=== PATIENT | male | born 1965 | race Two or more races ===

== ENCOUNTER 2024-05-04 06:07 | Observation (INO) | payer OTHER ==
[2024-05-04] VITALS (7 sets, daily range): BP systolic 129–152; BP diastolic 81–91; PULSE 60–80; RESP 13–18; TEMP 97.5–98.3; O2SAT 92–98
[~2024-05-04] VITALS: Ht 165.1 cm; Wt 85.3 kg
[~2024-05-04 06:07] MED LIST: FINA5TAB4 PO; OXYB5TAB14 PO
[2024-05-04] MEDS: CIPROFLOXACIN 400MG/200ML 200 ML IV ONE (07:15)
[2024-05-04] MEDS ORDERED: HYDROmorphone HCL 2 MG/ML VL/or syr IV PRN (07:30)
[2024-05-04] MEDS: ONDANSETRON HCL 4 MG/2 ML VIAL IV ONE (07:30)
[2024-05-04] MEDS ORDERED: MIDAZOLAM HCL 2MG/2ML 2ml VIAL (1mg/ml) ONE (07:36)
[2024-05-04] MEDS ORDERED: fentaNYL CITRATE 100 MCG/2 ML VL ONE (07:36)
[2024-05-04] MEDS ORDERED: PROPOFOL 10 MG/ML 20 ML IV ONE (07:36)
[2024-05-04] MEDS ORDERED: LIDOCAINE 2% (LOCAL ANESTH.) PF 5ml SDV ONE (07:37)
[2024-05-04] MEDS ORDERED: DexAMETHasone SOD PHOS 10MG/1ML VIAL INJ ONE (07:37)
[2024-05-04] MEDS ORDERED: ONDANSETRON HCL 4 MG/2 ML VIAL ONE (07:37)
[2024-05-04] MEDS: GENTAMICIN SULFATE 2 ML ONE (07:44)
--- NOTE | 2024-05-04 07:52 | POSTOP ---
Post-Operative Note Post-Operative Note Preop Diagnosis Urinary retention UTI BPH Postop Diagnosis: TURP Operation performed TURP Specimen Prostate tissue Anesthesia: General Anesthesiologist: Daniel Surgeon Brenda Abarca Complications & Mgmt Given UTI, patient will be admitted for obervation and antibiotic therapy and CT Scan evaluation. Date 05/04/24 Time 07:50 BRENDA ABARCA MD May 04, 2024 07:52
[2024-05-04] MEDS ORDERED: NITROGLYCERIN 0.4 MG SL TAB SL PRN (08:00)
[2024-05-04] MEDS ORDERED: MORPHINE SULFATE INJ 2 MG/ml SYRG IV PRN (08:00)
[2024-05-04] MEDS ORDERED: ROCURONIUM 10MG/ML 10ML VIAL IV ONE (08:16)
[2024-05-04] MEDS ORDERED: GENTAMICIN PER PHARMACY 0 ML IV SCH (09:45)
[2024-05-04] MEDS: D5W 5% IV ONE (10:00)
[2024-05-04] MEDS: GENTAMICIN SULFATE IV ONE (10:00)
--- NOTE | 2024-05-04 17:23 | DVH ---
Exam: CT CT AB PEL WO CON-NO ORAL OR IV History: Klebsiella UTI Comparison Study: None Technique: Multidetector spiral CT of the abdomen and pelvis was performed from lung bases to pubic symphysis. Imaging was performed without IV contrast. Axial, coronal and sagittal multiplanar reform ats were obtained from the axial data set by the technologist. Radiation dose : Abdomen/Pelvis: CTDIvol 8 mGy, DLP 420 mGy*cm. Findings: Evaluation of solid organs is limited due to lack of intravenous contrast use. Lung Bases: Atelectasis and scarring in the lung bases. Liver: The liver is normal in size. No focal lesions. Gallbladder and biliary Tree: Unremarkable Spleen: Unremarkable Pancreas: The pancreas is grossly normal in appearance. Adrenal Glands: Unremarkable Kidneys: Kidneys are grossly normal without calculi or hydronephrosis. Bladder: Bladder is decompressed with a Moreira catheter and cannot be adequately assessed. Bowel: The stomach is grossly normal in appearance. Small bowel and colon are normal in caliber and d istribution. Normal appendix is visualized in the right lower quadrant without findings of appendici tis. Ascites: Absent Lymphadenopathy: No mesenteric, retroperitoneal or periportal lymphadenopathy. Abdominal wall and Mesentery: Unremarkable. Vasculature: The visualized abdominal aorta is normal in size and caliber. Evaluation of abdominal a nd pelvic vessels is limited due to lack of intravenous contrast. Pelvic Organs: Prostate is enlarged. Musculoskeletal: No aggressive focal bony lesions, acute fractures or dislocation. IMPRESSION: 1. No acute abdominal or pelvic findings. Atelectasis and scarring in the lung bases. Prostatomegaly. No hydronephrosis or nephrolithiasis. Can not evaluate for pyelonephritis without intravenous contra st. Clinical correlation and continued follow-up is recommended. Radiation optimization: All CT scans at this facility use at least one of these dose optimization kerry hniques: Automated exposure control mA and/or kV adjustment per patient size (includes targeted exams where dose is matched to clinical indication) or iterative reconstruction. HS:Y
[2024-05-05 01:00] VITALS: BP 118/73; PULSE 77; RESP 18; TEMP 97.9; O2SAT 90
[2024-05-05 05:00] VITALS: BP 120/81; PULSE 76; RESP 18; TEMP 98.1; O2SAT 93
[2024-05-05 08:00] VITALS: RESP 18
--- NOTE | 2024-05-05 08:37 | DVHHP2 ---
History of Present Illness History of Present Illness A 59-year-old male obese patient; with past medical history of BPH; who was admitted after TURP to treat UTI. Smoke: No ALCOHOL: none Drugs: None Lives: with Family Review of Systems Genitourinary: Other (Weak urine stream; hesitation) Allergies: Coded Allergies: NO KNOWN ALLERGIES (Unverified , 04/27/24) Medications Current Medications Medications Dose Ordered Sig/Anuj Route Start Time Stop Time Status Last Admin Dose Admin Nitroglycerin 0.4 mg Q5MINP PRN SL 05/04/24 08:00 Morphine Sulfate 2 mg Q30M PRN IV 05/04/24 08:00 Gentamicin Sulfate 0 ml @ 0 mls/hr PER PHARMACY IV 05/04/24 09:45 05/14/24 09:44 UNV Exam Vital Signs Vital Signs Date Time Temp Pulse Resp B/P (MAP) Pulse Ox O2 Delivery O2 Flow Rate FiO2 05/05/24 05:00 98.1 76 18 120/81 (94) 93 98.1 05/04/24 20:00 Room Air* 0 21 General Appearance: Alert, Oriented X3, Cooperative, No acute distress HEENT: Atraumatic Respiratory: Clear to auscultation, Normal air movement Cardiovascular: Regular rate, Normal S1, Normal S2 Abdominal: Normal bowel sounds, Soft, No tenderness, Other (Moreira's catheter in place with clear urine) Extremities: No edema Skin: No rashes Neuro: Normal speech, Cranial nerves 3-12 NL Psych/Mental Status: Mental status NL, Mood NL Labs/Xrays Ordered blood work Assessment/Plan Assessment/Plan A 59-year-old male obese patient; with past medical history of BPH; who was admitted after TURP to treat UTI. #BPH status post TURP on May 04, 2023; now with a clear urine; Moreira's catheter was discontinued; patient passed urine with no complaints; clear urine passed; cleared by Urology for discharge #UTI; patient was discharged home on Augmentin as per Urology #Obesity; counseled the patient is on the importance of adopting healthy lifestyle with diet and exercise in order to lose weight The patient will follow up with discharge clinic next Wednesday and will follow up with Urology in two weeks. Goals of care discussed with the patient for 20 minutes; full code. Late Entry. This medical document was created using an electronic medical record system with computerized dictation system. Although this document has been carefully reviewed, there might still be some phonetic and typographical errors. These areas are purely typographical due to imperfections of the software programs, and do not reflect any compromise in the patient's medical care. Plan discussed with: Patient, Other (Nurse) Date of Service: May 05, 2024 Billing Provider: AYUSH HIGGINS MD Common Visit Codes: 90147-ZHSFRIL INP/OBS CARE (MOD) Secondary Visit Codes: 89550-[id number] CARE PLAN 30 MINUTES (20 minutes) AYUSH HIGGINS MD May 05, 2024 08:37
[2024-05-05 09:00] VITALS: BP 121/78; PULSE 72; RESP 16; TEMP 98.8; O2SAT 92
[2024-05-05 10:18] LABS: Alanine Aminotransferase 37 U/L (7-40); Albumin 4.1 g/dL (3.2-4.8); Anion Gap 8 (5-15); Aspartate Aminotransferase 20 U/L (13-40); BUN/Creatinine Ratio 19.8 (10.0-20.0); Blood Urea Nitrogen 17 mg/dL (9-23); Calcium 9.8 mg/dL (8.7-10.4); Carbon Dioxide 26 mmol/L (20-31); Chloride 105 mmol/L (98-107); Sodium 139 mmol/L (136-145)
[2024-05-05 10:19] LABS: Bilirubin, Total 0.6 mg/dL (0.2-1.0); Total Protein 6.8 g/dL (5.7-8.2)
[2024-05-05 10:30] LABS: Alkaline Phosphatase 117 U/L (46-116); Glucose 170 mg/dL (74-106)
[2024-05-05 11:18] LABS: Basophils # (auto) 0 10 ^3/uL (0-0.2); Basophils % (auto) 0.1 % (0.0-2.0); Eosinophils # (auto) 0 10 ^3/uL (0-0.8); Hematocrit 43.5 % (41.0-53.0); Hemoglobin 14.7 g/dL (13.5-17.5); Lymphocytes # (auto) 2.2 10 ^3/uL (0.4-5.4); Lymphocytes % (auto) 16.7 % (10.0-50.0); Mean Corpuscular Hemoglobin 29.8 pg (28.0-32.0); Mean Corpuscular Hgb Conc. 33.7 g/dL (32.0-36.0); Mean Corpuscular Volume 88.2 fL (80.0-100.0); Monocytes % (auto) 7.8 % (0.0-12.0); Neutrophils # (auto) 10.1 10 ^3/uL (1.6-8.6); Neutrophils % (auto) 75.4 % (37.0-80.0); Platelet Count (auto) 227 10^3/uL (140-450); Red Blood Cells 4.93 10^6/uL (4.5-5.90); Red Cell Distribution Width 13.2 % (11.8-14.3); White Blood Cell 13.4 10^3/uL (4.4-10.8)
[2024-05-05 13:00] VITALS: BP 121/77; PULSE 73; RESP 16; TEMP 98.8; O2SAT 92
--- NOTE | 2024-05-05 15:10 | DVHDS2 ---
Discharge Summary Date of Admission May 04, 2024 at 07:52 Date of Discharge: May 05, 2024 Admitting Diagnosis Status post TURP to treat UTI Labs/Diagnostic Data: Laboratory Results Test 05/05/24 09:47 White Blood Count 13.4 10^3/uL (4.4-10.8) Red Blood Count 4.93 10^6/uL (4.5-5.90) Hemoglobin 14.7 g/dL (13.5-17.5) Hematocrit 43.5 % (41.0-53.0) Mean Corpuscular Volume 88.2 fL (80.0-100.0) Mean Corpuscular Hemoglobin 29.8 pg (28.0-32.0) Mean Corpuscular Hemoglobin Concent 33.7 g/dL (32.0-36.0) Red Cell Distribution Width 13.2 % (11.8-14.3) Platelet Count 227 10^3/uL (140-450) Mean Platelet Volume 8.8 fL (6.9-10.8) Neutrophils (%) (Auto) 75.4 % (37.0-80.0) Lymphocytes (%) (Auto) 16.7 % (10.0-50.0) Monocytes (%) (Auto) 7.8 % (0.0-12.0) Eosinophils (%) (Auto) 0.0 % (0.0-7.0) Basophils (%) (Auto) 0.1 % (0.0-2.0) Neutrophils # (Auto) 10.1 10 ^3/uL (1.6-8.6) Lymphocytes # (Auto) 2.2 10 ^3/uL (0.4-5.4) Monocytes # (Auto) 1.0 10 ^3/uL (0-1.3) Eosinophils # (Auto) 0 10 ^3/uL (0-0.8) Basophils # (Auto) 0 10 ^3/uL (0-0.2) Nucleated Red Blood Cells 0.0 % Sodium Level 139 mmol/L (136-145) Potassium Level 4.0 mmol/L (3.5-5.1) Chloride Level 105 mmol/L (98-107) Carbon Dioxide Level 26 mmol/L (20-31) Anion Gap 8 (5-15) Blood Urea Nitrogen 17 mg/dL (9-23) Creatinine 0.86 mg/dL (0.700-1.30) Glomerular Filtration Rate Calc 99 mL/min (>90) BUN/Creatinine Ratio 19.8 (10.0-20.0) Serum Glucose 170 mg/dL (74-106) Calcium Level 9.8 mg/dL (8.7-10.4) Total Bilirubin 0.6 mg/dL (0.2-1.0) Aspartate Amino Transferase (AST) 20 U/L (13-40) Alanine Aminotransferase (ALT) 37 U/L (7-40) Alkaline Phosphatase 117 U/L (46-116) Total Protein 6.8 g/dL (5.7-8.2) Albumin 4.1 g/dL (3.2-4.8) Other Laboratory Tests 05/05/24 09:47 Brief Hx & Hospital Course: A 59-year-old male obese patient; with past medical history of BPH; who was admitted after TURP to treat UTI. #BPH status post TURP on May 04, 2024; now with a clear urine; Moreira's catheter was discontinued; patient passed urine with no complaints; clear urine passed; cleared by Urology for discharge #UTI; patient was discharged home on Augmentin as per Urology #Obesity; counseled the patient is on the importance of adopting healthy lifestyle with diet and exercise in order to lose weight The patient will follow up with discharge clinic next Wednesday and will follow up with Urology in two weeks. Goals of care discussed with the patient for 20 minutes; full code. Late Entry. This medical document was created using an electronic medical record system with computerized dictation system. Although this document has been carefully reviewed, there might still be some phonetic and typographical errors. These areas are purely typographical due to imperfections of the software programs, and do not reflect any compromise in the patient's medical care. Consults/Reason for consult Urology for BPH Operations or Procedures TURP on May 04, 2024 Condition at Discharge: Stable Final Diagnosis/Problems List Status post TURP Secondary Diagnosis: As above Discharge Disposition: Home Discharge Instruct/Medications Diet: Regular Activity: No Restrictions, As Tolerated Follow Up/Referral: Discharge clinic on Wednesday May 08, 2024; with Dr. García in two weeks Medications: Augmentin as per urology recommendations Discharge Statement: "Patient was advised to return to the ER or call 911 if any headaches, dizziness, shortness of breath, chest pain, abdominal pain, bleeding, fevers, or worsening of medical condition. Patient was counseled about treatment plan, medications, possible side effects, patientverbalized understanding. All questions were answered to the best of my ability. This discharge took greater then 30 minutes in planning, reviewing documentation, counseling the patient, and discussing with other team members." ASSESSMENT ASSESSMENT Assessment Status post TURP Date of Service: May 05, 2024 Billing Provider: AYUSH HIGGINS MD Common Visit Codes: 53794-FFT/OBS DISCH DAY >30min AYUSH HIGGINS MD May 05, 2024 15:10
[2024-05-05] MEDS ORDERED: CIPR-173 PO (15:12)
[2024-05-05 16:46] VITALS: BP 133/67; PULSE 69; RESP 16; TEMP 98.6; O2SAT 93
--- NOTE | 2024-05-05 19:02 | DVHPN2 ---
Progress Note - Dictate Date Seen: May 05, 2024 Has the PT tested + for MRSA If YES, has PT been informed?: No Medical Necessity Reason Pt with a Central, PICC or Fol: No Medical Necessity Reason Postop day 1. Status post TURP Subjective Patient has voided 3 times since the catheter removal and is doing well vital signs Vital Sign Date Time Temp Pulse Resp B/P (MAP) Pulse Ox O2 Delivery O2 Flow Rate FiO2 05/05/24 16:46 98.6 69 16 133/67 (89) 93 98.6 05/04/24 20:00 Room Air* 0 21 Total Intake and Output 05/04/24 05/04/24 05/05/24 15:00 23:00 07:00 Intake Total 100 ml 360 ml 850 ml Balance 100 ml 360 ml 850 ml medications Current Medications Medications Dose Ordered Sig/Anuj Route Start Time Stop Time Status Last Admin Dose Admin Nitroglycerin 0.4 mg Q5MINP PRN SL 05/04/24 08:00 Morphine Sulfate 2 mg Q30M PRN IV 05/04/24 08:00 Gentamicin Sulfate 0 ml @ 0 mls/hr PER PHARMACY IV 05/04/24 09:45 05/14/24 09:44 UNV objective No acute distress laboratory and microbiology Laboratory Tests 05/05/24 09:47 Test 05/05/24 09:47 Range/Units Serum Glucose 170 H 74-106 mg/dL Problem List Status post TURP UTI placed on appropriate antibiotics with Augmentin Assessment/Plan Follow up in two weeks for pathology results Plan discussed with: Patient, Spouse BRENDA ABARCA MD May 05, 2024 19:02
== END 2024-05-05 19:45 | disposition home or self-care (01) ==
LOC: SUR 06:07 → OVERFLOW 07:52 → CENTRAL 10:17
PROVIDERS: ADMIT Urology; ATTEND Internal Medicine
DX: N40.1 Benign prostatic hyperplasia with lower urinary tract symptoms (principal); I11.9 Hypertensive heart disease without heart failure; N39.0 Urinary tract infection, site not specified; R39.14 Feeling of incomplete bladder emptying; E66.9 Obesity, unspecified; Z90.79 Acquired absence of other genital organ(s); Z68.31 Body mass index [BMI] 31.0-31.9, adult; Z79.899 Other long term (current) drug therapy; Z98.890 Other specified postprocedural states
CPT/HCPCS: 36415; 52601; 74176; 80053; 85025; 88305; 88312; 96365; G0378; J0744; J1100; J1580; J2003; J2250; J2405; J2704; J3010; J7030; J7060